=== PATIENT | male | born 1965 | race Caucasian/White ===

== ENCOUNTER 2016-11-21 07:37 | Observation (INO) | payer OTHER ==
--- NOTE | ~2016-11-21 | CR72 ---
[facility]. [facility] A Service of [facility] & [facility] RADIOLOGY TEXT RESULTS PATIENT: TRINITY LEMA LOCATION: SED : 63 UNIT #: [id number] AGE: [address]: Sharon Lawson MD SEX: M ORDER DR: [id number] [place] [id number] E MR#: [id number] Acc #: [id number] NAME: TRINITY LEMA : 1965 SEX: M STUDY DATE/TIME: 11/21/2016 8:26 UNIT: SED ROOM: STUDY DESCRIPTION: CR Chest Single View Portable Attending Physician: Sharon Lawson M.D. Ordering Physician: Physician Non-Staff Primary Care Physician: Varun Richardson M.D. MEDICAL IMAGING REPORT This report is preliminary unless electronic signature is present. EXAM Portable chest 11/21/2016 [facility] HISTORY 51-year-old male patient chest pain and pressure beginning this morning. Weakness. Dizziness. Nausea. Low heart rate. COMPARISON: Chest 03/16/2011 FINDINGS AP upright chest demonstrates normal cardiac size and configuration. Hilar structures and mediastinal contours are preserved. Lungs are mildly hyperinflated. There are no infiltrates and no effusions. IMPRESSION Generalized pulmonary hyperinflation, stable chest with no acute finding. Dictated by... Martir Seals M.D. THIS IS AN ELECTRONICALLY VERIFIED REPORT Martir Seals M.D. at 11/21/2016 11:01 AM YUNG/christine TD: 11/21/2016 10:15 JOB #: [id number] MEDICAL IMAGING REPORT Page 1 of 1
--- NOTE | ~2016-11-21 | CT71 ---
[facility] A Service of [facility] RADIOLOGY TEXT RESULTS PATIENT: TRINITY LEMA LOCATION: [facility] : 63 UNIT #: [id number] AGE: [address]: Yani Manrique MD SEX: M ORDER DR: [id number] [address] [address] [id number] E MR#: [id number] Acc #: [id number] NAME: TRINITY LEMA : 1965 SEX: M STUDY DATE/TIME: 11/21/2016 8:24 UNIT: SED ROOM: STUDY DESCRIPTION: CT Head Wo Contrast Attending Physician: Sharon Lawson M.D. Ordering Physician: Physician Non-Staff Primary Care Physician: Varun Richardson M.D. MEDICAL IMAGING REPORT This report is preliminary unless electronic signature is present. EXAM CT of the head without contrast INDICATION Dizziness. Nausea and pain starting this morning. TECHNIQUE Axial CT images were obtained from the vertex of the skull through the skull base. No intravenous contrast was administered. This CT exam was performed with one or more of the following radiation dose reduction techniques: automatic exposure control, adjustment of mA and/or kV according to patient size, and iterative reconstruction. FINDINGS No acute intracranial hemorrhage is identified. Brain parenchyma is normal in attenuation without focal areas of decreased attenuation seen. There is no midline shift or mass effect. There is mucosal thickening identified within the ethmoid and maxillary sinuses. Some additional involvement is seen within the sphenoid and frontal sinuses as well. Mastoid air cells appear clear. There are no focal soft tissue abnormalities. IMPRESSION 1. No acute intracranial process is identified. Specifically, there is no acute hemorrhage, mass lesion or acute infarct. 2. Sinus inflammatory changes as noted above. Dictated by... Thelma Quintana M.D. THIS IS AN ELECTRONICALLY VERIFIED REPORT [facility] A Service of [facility] RADIOLOGY TEXT RESULTS PATIENT: TRINITY LEMA LOCATION: [facility] 55 : 64 UNIT #: [id number] AGE: [address]: Yani Manrique MD SEX: M ORDER DR: Thelma Quintana M.D. at 11/21/2016 4:33 PM ANNIKA/jw TD: 11/21/2016 10:39 JOB #: [id number] MEDICAL IMAGING REPORT Page 1 of 1
--- NOTE | ~2016-11-21 | DS ---
Unit #: [id number] #: [id number] Patient: TRINITY LEMA [id number] [address] [place], [place] [address] [id number] I MR#: [id number] NAME: TRINITY LEMA. ROOM: [facility] Age: 51 Sex: M Admission Date: 11/21/2016 : 1965 Discharge Date: 11/22/2016 Attending Physician: Yani Manrique M.D. Primary Care Physician: Varun Richardson M.D. DISCHARGE SUMMARY ADMISSION DIAGNOSES 1. Near syncope. 2. Pressure/atypical chest pain. 3. Sinusitis. DISCHARGE DIAGNOSES 1. Near syncope, resolved. 2. Atypical chest pain, AMI ruled out with negative troponins and cardiac enzymes. 3. Sinusitis. 4. Tobacco use. CONSULTANTS Dr. Antonette Kelly - Neurology. DIAGNOSTIC STUDIES IMAGIN. CTA of the neck - negative examination per voice clip. 2. MRA of the neck and head with and without contrast. Impression - no hemodynamically significant stenosis in bilateral internal carotid artery bulbs per NASCET criteria. There is a segment of decreased caliber of the left vertebral artery noted from its origin until it enters into the transverse foramen on the left lower C-spine. This narrowing could be related to dissection; however, a well-defined intimal flap is not seen on the current study. Clinical correlation and depending on the need, CTA of the neck can be considered for further characterization. No obvious irregularity is seen along the vessel wall. 3. MRI of the brain without contrast. Impression - no acute intracranial findings. Patchy mucosal thickening in the paranasal sinuses. 4. CT of the head without contrast. Impression - no acute intracranial process identified. Specifically, no acute hemorrhage, mass, lesion or acute infarct. Sinus inflammatory changes as noted above. 5. Portable chest x-ray. Impression - generalized pulmonary hyperinflation. Stable chest with no acute findings. LABORATORY: WBC 11.9, hemoglobin 16.5, hematocrit 48.7, platelets 183,000. Sodium 137, potassium 4.0, chloride 107, CO2 25, glucose 87, BUN 14, creatinine 0.9, calcium 8.8. Total cholesterol 176, triglycerides 101, LDL cholesterol 120, HDL 36. Troponin 1, less than 0.03, less than 0.05, less than 0.05. Percent MB 1.4, CK total 100. TSH 1.38. Unit #: [id number] #: [id number] Patient: TRINITY LEMA Urinalysis negative. CONDITION Stable. DISPOSITION Home. DISCHARGE MEDICATIONS 1. Norvasc 10 mg p.o. daily. 2. Zithromax 500 mg by mouth daily for seven days. DISCHARGE INSTRUCTIONS The patient is to call and schedule a followup appointment with [facility], Dr. Manrique, in three to five days as he does not have a primary care physician at this time. He is to call [phone] to confirm this appointment which has been scheduled for 11/25/16 at 1:[address] Manrique. HOSPITAL COURSE The patient is a 51-year-old male who presented to [facility] emergency department on the date of admission with complaints of chest pressure, dizziness and nausea. He has a history of hypertension. He has not had medical care for the past three to four years. 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 He described a near syncopal episode which was also associated with numbness in the right leg. Chest pressure resolved and, although he experienced some nausea, he had no vomiting. The patient's EKG showed normal sinus rhythm with ventricular rate of [address] of the head and other diagnostic imaging of the brain and neck showed no acute changes. There was consideration of possible left vertebral artery dissection based on the MRA of the neck report. CTA of the neck was considered for further characterization and was performed this morning. Per voice click results, that was a normal examination. The patient has been completely asymptomatic and has had no further complaints since admission. Dr. Manrique has discussed this patient's case in detail with Dr. Kelly of neurology. At this time, no further neurologic or cardiac workup is planned. The patient was noted to have a low body weight of 17.5 which is 73% of his ideal body weight. He was evaluated by the progressive care unit registered nurse who recommended a healthy heart diet and Ensure shake daily to promote gradual weight gain. I have discussed this patient's care including the CTA of the neck results with Dr. Manrique directly and he has given me a telephone order to discharge the patient this afternoon with followup as dictated above. Dictated by... Silvia Dunlap A.P.R.N. for Wil Cr/rian Unit #: [id number] #: [id number] Patient: TRINITY LEMA Chaitanya TD: 11/23/2016 12:47 JOB #: [id number] DISCHARGE SUMMARY Page 1 of 1 X Silvia Dunlap APRN X DISCHARGE SUMMARY
--- NOTE | ~2016-11-21 | A ---
[facility] Nutrition Therapy DATE: 11/22/16 Patient: TRINITY LEMA Physician: DINA Address: [address] [place] [address] RD Room/Bed: [address] [place] [address], Zip: [place] [address] Admit Date: 11/21/16 Date of : 63 Height: 5 10 Weight: 117 53.4 NUTRITIONAL ASSESSMENT: REASON: LOW BMI PT IS 51 Y.O. MALE ADMITTED FOR CHEST PAIN PMH: HTN, KIDNEY STONES Anthropometrics: 5'10", WT: 122# (PER PT) (55 KG), BMI: 17.5, 73%IBW Labs: WNL Meds: NACL, PROTONIX I/O & Bowel function: 1510/300 Skin Integrity: NO KNOWN SKIN ISSUES Estimated Nutrition Needs: N/A Assessment: CHART REVIEWED AND EVENTS NOTED. PT SEEN FOR LOW BMI. PT REPORTS USUAL GOOD PO INTAKE AND APPETITE, NO C/O N/V/D. PT DENIES ANY CHEWING OR SWALLOWING DIFFICULTIES. PT REPORTS HE HAS ALWAYS BEEN SMALL-NOTES ~120-125# UBW. THIS RD ENCOURAGED ADEQUATE KCAL AND PROTEIN INTAKE, PT AGREED TO ENSURE SHAKE DAILY W/LUNCH. RD ALSO PROVIDED WRITTEN AND VERBAL DIET EDUCATION. PT VERBALIZED UNDERSTANDING OF THE TOPIC. PT REPORTED NO DIET QUESTIONS AT THIS TIME. RD TO FOLLOW. Dx: UNDERWEIGHT R/T GENETICS AEB LOW BMI OF 17.5, 73%IBW. -ALTERED NUTRIENT UTILIZATION R/T PMH AEB NEED FOR THERAPEUTIC DIET ORDER. Intervention: 1. HH DIET 2. ENSURE SHAKE DAILY 3. HH DIET EDUCATION Monitoring, Evaluation and Goals: 1. PO INTAKE; CONSUME ~80-100% NEEDS W/NO C/O N/V/D 2. WEIGHTS; PROMOTE GRADUAL WEIGHT GAIN 3. MNT; UNDERSTANDING OF DIET MONITOR: -PO INTAKE/APPETITE -WEIGHTS -EDUCATION NEEDS -SUPPLEMENT INTAKE [facility] Nutrition Therapy DATE: 11/22/16 Patient: TRINITY LEMA Physician: DINA Address: [address] [place] [address] RD Room/Bed: [address] [place] [address], Zip: [place] [address] Admit Date: 11/21/16 Date of : [birth year] Height: 5 10 Weight: 117 53.4 Recommendations: 1. PLEASE ORDER VANILLA ENSURE SHAKE DAILY W/LUNCH MEAL 2. CONSULT RD IF FURTHER DIET EDUCATION NEEDED/REQUESTED RD WILL F/U PER PROTOCOL PT IS MILDLY COMPROMISED Respectfully, YAYA REAVES MS, RD, LD Food and Nutritional Services [facility] cc: client file
--- NOTE | ~2016-11-21 | MR133 ---
[facility] A Service of [facility] & [facility] RADIOLOGY TEXT RESULTS PATIENT: TRINITY LEMA LOCATION: [facility] 552- : 63 UNIT #: [id number] AGE: [address]: Yani Manrique MD SEX: M ORDER DR: [id number] [facility] [address] [place], [place] [address] [id number] I MR#: [id number] Acc #: [id number] NAME: TRINITY LEMA. : 1965 SEX: M STUDY DATE/TIME: 11/21/2016 21:57 UNIT: [facility] ROOM: [facility] STUDY DESCRIPTION: MR MRA Neck WWo Contrast Attending Physician: Yani Manrique M.D. Ordering Physician: Yani Manrique M.D. Primary Care Physician: Varun Richardson M.D. MRI CENTER REPORT This report is preliminary unless electronic signature is present. REVISED REPORT See addendum EXAM MR angiogram of the neck with and without contrast dated 11/21/2016. COMPARISON STUDIES MRA head and MRI brain dated 11/21/2016. HISTORY Patient had nausea on 11/21/2016 and felt like passing out. Chest pain. FINDINGS Source and 3D reconstruction MIP images of the neck arteries were obtained with and without contrast. GFR measured greater than 60. 11 mL of MultiHance was administered intravenously. 3-vessel arch is seen. Visualized bilateral common, internal, and external carotid arteries demonstrate expected course, caliber and flow. Vertebral arteries do not demonstrate any significant abnormality either. The left vertebral artery demonstrates likely decreased caliber in the proximal segment before it enters the transverse foramen on the left. It, however, has relatively normal caliber right after that. No aneurysm of AVM. IMPRESSION 1. No hemodynamically significant stenosis in bilateral internal carotid artery bulbs per NASCET criteria. 2. There is a segment of decreased caliber of the left vertebral artery noted from its origin till it enters into the transverse foramen on the left lower C-spine. This narrowing could be related to dissection, however, a well defined intimal flap is not seen on the current study. Clinical correlation and depending on the need, CTA of the neck can be considered for further characterization. No obvious irregularity is seen along the vessel wall. [facility] A Service of [facility] & [facility] RADIOLOGY TEXT RESULTS PATIENT: TRINITY LEMA LOCATION: [place] [address] : [birth year] UNIT #: [id number] AGE: [address]: Yani Manrique MD SEX: M ORDER DR: 3. Attempts are made to contact Dr. Manrique or the doctor who is covering for the patient at this time, at 10:30 a.m. on 11/22/2016. A preliminary read was given by Dr. Seven Sales at 2320 hours on 11/21/2016. STAT * RESULT Dictated by... Lazara Senior M.D. THIS IS AN ELECTRONICALLY VERIFIED REPORT Lazara Senior M.D. at 11/23/2016 8:44 AM CPR/tmw TD: 11/22/2016 10:49 JOB #: [id number] ADDENDUM Findings were discussed with Dr. Manrique within the next 2 hours. Dictated by... Lazara Senior M.D. THIS IS AN ELECTRONICALLY VERIFIED REPORT Lazara Senior M.D. at 11/25/2016 4:56 PM CPR/jt TD: 11/22/2016 22:33 JOB #: [id number] CC: Tayla/adonay Please Delete MRI CENTER REPORT Page 1 of 1 COPY
--- NOTE | ~2016-11-21 | HP ---
Unit #: [id number] #: [id number] Patient: TRNIITY LEMA [id number] [address] [place], [place] [address] [id number] I MR#: [id number] NAME: TRINITY LEMA ROOM: [facility] Age: 51 Sex: M Admission Date: 11/21/2016 : 1965 Attending Physician: Yani Manrique M.D. Primary Care Physician: Varun Richardson M.D. HISTORY AND PHYSICAL CHIEF COMPLAINT 1. Chest pressure. 2. Dizziness and nausea. 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 He had a near syncopal episode and he also experienced some numbness of his right leg. Chest pressure did not last very long, had some nausea with it but no vomiting. The patient has not had any symptoms like this in the past. The only checks he has usually is a prostate exam which he gets every year. REVIEW OF SYSTEMS Denies any fever or rash. Denies any history of head trauma. Denies any history of black out episodes in the past. Denies any melena, hematochezia, hematemesis. Denies any cough or cough associated with breathlessness. A complete 10-point review of systems is done and pertinent positives noted above. PAST MEDICAL HISTORY Significant for: 1. Hypertension for which he is on no medications at this time. 2. Also kidney stones. PAST SURGICAL HISTORY Tonsillectomy. HOME MEDICATIONS Norvasc. ALLERGIES 1. Penicillin. 2. Codeine. SOCIAL HISTORY Smokes about a pack of cigarettes per day. Denies any alcohol use or illicit drug use. 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 FAMILY HISTORY Significant for diabetes mellitus and hypertension in both mother and father. His mother had a myocardial infarction in her 40s. Unit #: [id number] #: [id number] Patient: TRINITY LEMA PHYSICAL EXAMINATION VITAL SIGNS: Blood pressure 146/86, respiratory rate 16, pulse 94, temperature 97.9. GENERAL: He was comfortable, not in distress. EYES: Pupils equal and react to light and accommodation. Pupils are 4 mm, bilaterally symmetrical. NECK: Supple without thyromegaly, no elevated JVD. EARS, NOSE, THROAT: Pharynx not erythematous. LUNGS: Mostly clear. ABDOMEN: Full, moves with respirations, soft. No palpable organomegaly. Positive for normal bowel sounds. RECTAL: Deferred. NEUROLOGIC: Alert and oriented x3. Moves all extremities spontaneously. Cranial nerves II-XII are grossly intact. SKIN: Warm and dry with no rashes. LYMPH: No enlarged peripheral lymphadenopathy that I could appreciate. DIAGNOSTIC STUDIES LABORATORY: Glucose 88, BUN 22, creatinine 0.9, sodium 140, potassium 3.7, chloride 107, bicarbonate 27. CBC with WBC 11.9, hemoglobin 16.5, hematocrit 45.8, platelet count 183, neutrophil count of 61.0. Urinalysis was essentially negative. IMAGING: Chest x-ray showed generalized pulmonary hyperinflation which is stable with no acute findings. CT head showed no acute intracranial process. No acute hemorrhage or mass lesion or acute infarct. Sinus inflammatory changes were noted. CARDIOVASCULAR: EKG shows normal sinus rhythm with ventricular rate of 86 beats per minute. ASSESSMENT AND PLAN 1. Near syncope. The etiology of this is questionable at this time. The patient has not had any repeat of these symptoms. He had a CT scan of his brain which was negative. I will get an MRI of his brain and MRA of his head and neck. Will also get a lipid profile and TSH in the morning. 2. Chest pressure/atypical chest pain. Will put him on telemetry and get 3 sets of cardiac enzymes. Again, re-stratify him. The patient is not diabetic but does have a family history with mom who has had a myocardial infarction in her 40s. Considering his risk factors at this time would consider cardiac stress test should his cardiac markers become elevated. 3. Sinusitis. There was some evidence of sinusitis of the ethmoid and maxillary sinuses. Patient would benefit from antibiotic. Will put him on amoxicillin 500 mg p.o. t.i.d. for the next 10 days for his maxillary sinusitis. 4. GI prophylaxis. Put patient on Protonix 40 mg p.o. daily. 5. DVT prophylaxis. Put patient on Lovenox 40 mg subcu daily. GOALS OF CARE He is a FULL CODE. Unit #: [id number] #: [id number] Patient: TOREYTRINITY Chaitanya Dictated by Wil Cr/courtney TD: 11/21/2016 18:55 JOB #: [id number] HISTORY AND PHYSICAL Page 1 of 1 X Yani Manrique MD HISTORY AND PHYSICAL
--- NOTE | ~2016-11-21 | MR122 ---
[facility] A Service of [facility] & [facility] RADIOLOGY TEXT RESULTS PATIENT: TRINITY LEMA LOCATION: [facility] 552- : [birth year] UNIT #: [id number] AGE: [address]: Yani Manrique MD SEX: M ORDER DR: [id number] [facility] [address] [place], [place] [address] [id number] I MR#: [id number] Acc #: [id number] NAME: TRINITY LEMA. : 1965 SEX: M STUDY DATE/TIME: 11/21/2016 21:57 UNIT: [facility] ROOM: [facility] STUDY DESCRIPTION: MR MRA Head Wo Contrast Attending Physician: Yani Manrique M.D. Ordering Physician: Yani Manrique M.D. Primary Care Physician: Varun Richardson M.D. MRI CENTER REPORT This report is preliminary unless electronic signature is present. EXAM MR angiogram of the head without contrast dated 11/21/2016. COMPARISON MRI brain without contrast dated 11/21/2016, MRA neck with and without contrast dated 11/21/2016. HISTORY Nausea began on 11/21/2016 and patient felt like passing out. FINDINGS Source and 3-D reconstruction MIP images of the council of [place] was obtained without contrast. Subtle linear hypointense thin linear time of flight signal is noted within the supraclinoid bilateral ICA which is probably artifactual rather than intimal flaps as it is seen on both sides. It is seen in the supraclinoid left ICA in series 3, image 117. Bilateral anterior cerebral arteries, and middle cerebral arteries are within normal limits. 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 No associated aneurysmal dilatation is seen. Posterior circulation demonstrates normal-appearing basilar artery, bilateral posterior cerebral arteries. The vertebral arteries decrease in caliber as they extend towards the basilar artery. IMPRESSION 1. Subtle linear hypointense thin linear time of flight signal is noted within the supraclinoid bilateral ICA which is probably artifactual rather than intimal flaps as it is seen on both sides. 2. No obvious aneurysm or AVM is seen. 3. There is decrease in caliber of bilateral vertebral arteries as they extend towards the vertebrobasilar junction. It is probably a congenital appearance but stenosis is next in the differential STS. [facility] A Service of [facility] & [facility] RADIOLOGY TEXT RESULTS PATIENT: TRINITY LEMA LOCATION: [place] [address] : [birth year] UNIT #: [id number] AGE: [address]: Yani Manrique MD SEX: M ORDER DR: consideration. No distal flow compromise in the basilar artery is seen. Dictated by... Lazara Senior M.D. THIS IS AN ELECTRONICALLY VERIFIED REPORT Lazara Senior M.D. at 11/23/2016 9:26 AM CPR/tmw TD: 11/22/2016 12:29 JOB #: [id number] MRI CENTER REPORT Page 1 of 1 COPY
--- NOTE | ~2016-11-21 | CT23 ---
[facility] A Service of [facility] RADIOLOGY TEXT RESULTS PATIENT: TRINITY LEMA LOCATION: [facility] 55- : 63 UNIT #: [id number] AGE: [address]: Yani Manrique MD SEX: M ORDER DR: [id number] [place] [id number] [facility] [address] [place], [place] [address] [id number] I MR#: [id number] Acc #: [id number] NAME: TRINITY LEMA : 1965 SEX: M STUDY DATE/TIME: 11/22/2016 13:02 UNIT: [facility] ROOM: [facility] STUDY DESCRIPTION: CT Angio Neck Attending Physician: Yani Manrique M.D. Ordering Physician: Silvia Dunlap A.P.R.N. Primary Care Physician: Varun Richardson M.D. MEDICAL IMAGING REPORT This report is preliminary unless electronic signature is present EXAM CT angiogram of the neck with contrast HISTORY Dizziness for the past 3-4 days with an abnormal appearance to the proximal left vertebral artery on MRA. TECHNIQUE Axial images were obtained from the aortic arch to the skull base with contrast. 100 mL of Isovue was used. CT angiography was performed with thick sliding MIPs and curved planar reformats. This CT exam was performed with one or more of the following radiation dose reduction techniques: automatic control, adjustment of mA and/or kV according to patient size, and iterative reconstruction. FINDINGS Extravascular structures are unremarkable. The CT angiographic images are normal. In particular, the left vertebral artery is normal in appearance. There is no evidence of vertebral dissection on either side. There is no evidence of stenosis. The basilar artery is widely patent. In the carotid circulation no plaque is seen at the bifurcations. IMPRESSION Normal examination. STAT * RESULT Dictated by... [facility] A Service [facility] RADIOLOGY TEXT RESULTS PATIENT: TRINITY LEMA LOCATION: [place] [address] : 63 UNIT #: [id number] AGE: [address]: Yani Manrique MD SEX: M ORDER DR: Calvin Morrison M.D. THIS IS AN ELECTRONICALLY VERIFIED REPORT Calvin Morrison M.D. at 11/22/2016 6:47 PM RLF/darius TD: 11/22/2016 14:46 JOB #: [id number] MEDICAL IMAGING REPORT Page 1 of 1 COPY
--- NOTE | ~2016-11-21 | EKG ---
PATIENT: TRINITY LEMA UNIT #: [id number] Ventricular Rate: 86 BPM Atrial Rate: 86 BPM P-R Interval: 130 ms QRS Duration: 76 ms Q-T Interval: 368 ms QTC Calculation(Bezet): 440 ms P [place]: 68 degrees Calculated R [place]: 85 degrees Calculated T [place]: 71 degrees Diagnosis Line: Normal sinus rhythm Diagnosis Line: Normal ECG Diagnosis Line: No previous ECGs available Diagnosis Line: Confirmed by ROSITA SHANNON MD ([id number]) on 11/30/2016 Diagnosis Line: 7:57:14 PM INTERPRETING MD: MIRTHA NIEVES
--- NOTE | ~2016-11-21 | MR18 ---
[facility] A Service of [facility] RADIOLOGY TEXT RESULTS PATIENT: TRINITY LEMA LOCATION: [facility] : 63 UNIT #: [id number] AGE: [address]: Yani Manrique MD SEX: M ORDER DR: [id number] [facility] [address] [place], [place] [address] [id number] MR#: [id number] Acc #: [id number] NAME: TRINITY LEMA. : 1965 SEX: M STUDY DATE/TIME: 11/21/2016 21:57 UNIT: [facility] ROOM: [facility] STUDY DESCRIPTION: MR Brain Wo Contrast Attending Physician: Yani Manrique M.D. Ordering Physician: Yani Manrique M.D. Primary Care Physician: Varun Richardson M.D. MRI CENTER REPORT This report is preliminary unless electronic signature is present. EXAM MRI brain without contrast INDICATIONS Syncope today. PROCEDURE Multiplanar, multisequence MR imaging of the brain without administration of contrast COMPARISON Head CT from 11/21/2016 FINDINGS Diffusion weighted imaging shows no evidence for acute or early subacute infarct. There is no acute hemorrhage, abnormal mass effect, extraaxial collection or hydrocephalus. There are a few tiny foci of T2 hyperintensity in the white matter. Flow voids major create intracranial vessels are intact. There is some patchy mucosal thickening ethmoid air cells and right maxillary sinus. IMPRESSION 1. No acute intracranial findings. 2. Patchy mucosal thickening in the paranasal sinuses Dictated by... Poncho Sales M.D. THIS IS AN ELECTRONICALLY VERIFIED REPORT Poncho Sales M.D. at 11/22/2016 10:15 PM EED/carlos [facility] A Service [facility] RADIOLOGY TEXT RESULTS PATIENT: TRINITY LEMA LOCATION: [facility] : 63 UNIT #: [id number] AGE: [address]: Yani Manrique MD SEX: M ORDER DR: TD: 11/22/2016 02:31 JOB #: [id number] MRI CENTER REPORT Page 1 of 1 COPY
[~2016-11-21 07:37] MED LIST: CIPRO PO; DICLOFENAC PO; FLOMAX0.4 M1 PO; LOMOTIL TABLET1 TAB PO; NAPROSYN500 MG PO; NORVASC PO; PAXIL PO; PERCOCET5/325 PO; PHENERGAN25 MG PO; VICODIN 5/1 TAB 5/50 PO
[2016-11-21 08:03] LABS: BASOPHIL# 0.1 X10e3 (0-0.3); BASOPHIL% 0.8 % (0-2.5); DIFF IND NO; EOSINOPHIL# 0.3 X10e3 (0-0.7); EOSINOPHIL% 2.3 % (0.0-7.0); HEMATOCRIT 48.7 % (38.0-50.0); HEMOGLOBIN 16.5 gm/dL (13.0-16.0); LYMPHOCYTE# 3.5 X10e3 (1.0-3.5); LYMPHOCYTE% 29.6 % (17.0-45.0); MEAN CELL VOLUME 91.4 FL (83-96); MEAN CORPUSCULAR HGB CONC 33.9 g/dL (30-36); MEAN PLATELET VOLUME 8.4 FL (6.5-11.5); MONOCYTE# 0.7 X10e3 (0-1.0); MONOCYTE% 6.3 % (3.0-12.0); NEUTROPHIL# 7.3 X10e3 (1.5-7.1); PLATELET COUNT 183 X10e3 (140-420); RED BLOOD COUNT 5.34 X10e (3.90-5.60); RED CELL DISTRIBUTION WIDTH 13.9 % (11.0-15.5); WHITE BLOOD COUNT 11.9 X10e3 (4.0-10.5)
[2016-11-21 08:09] LABS: POC - CKMB <1.0 ng/mL (0.0-7.9); POC - MYOGLOBIN 56.2 ng/mL (0.0-169.0); POC - TROPONIN <0.05 ng/mL (<=0.05)
[2016-11-21 08:21] LABS: ALBUMIN SERUM 4.3 g/dL (3.5-5.0); BILIRUBIN, DIRECT 0.1 mg/dL (0.0-0.2); BILIRUBIN,INDIRECT 0.5 mg/dL (0.0-0.9); BILIRUBIN,TOTAL 0.6 mg/dL (0.2-2.0); BUN/CREATININE RATIO 24.44; CALCIUM SERUM 9.4 mg/dL (8.4-10.2); CREATININE SERUM 0.9 mg/dL (0.6-1.4); GLOM FILT RATE Estimated 97.9 mL/min (>60); POTASSIUM 3.7 mmol/L (3.5-5.1); PROTEIN TOTAL SERUM 6.9 g/dL (6.0-8.3)
[2016-11-21 09:41] LABS: POC - CKMB <1.0 ng/mL (0.0-7.9); POC - MYOGLOBIN 45.5 ng/mL (0.0-169.0)
[2016-11-21 09:42] LABS: POC - TROPONIN <0.05 ng/mL (<=0.05)
[2016-11-21 10:23] LABS: URINE SOURCE CLEAN CATCH
[2016-11-21 10:26] LABS: URINE APPEARANCE CLEAR; URINE BILIRUBIN NEG (NEG); URINE BLOOD NEG (NEG); URINE COLOR YELLOW; URINE GLUCOSE NEG (NORM); URINE KETONE NEG (NEG); URINE LEUKOCYTE ESTERASE NEG (NEG); URINE NITRATE NEG (NEG); URINE PH 6.5 (5-8); URINE UROBILINOGEN 0.2 MG/DL (NORM)
[2016-11-21 10:29] LABS: MICRO INDICATED? NO; URINE PROTEIN NEG (NEG)
[2016-11-21 20:02] LABS: %MB 1.4 % (0.0-4.0); MB 1.4 ng/ml
[2016-11-22 07:08] LABS: BUN/CREATININE RATIO 15.55; CALCIUM SERUM 8.8 mg/dL (8.4-10.2); CREATININE SERUM 0.9 mg/dL (0.6-1.4); GLOM FILT RATE Estimated 97.9 mL/min (>60)
[2016-11-22] MEDS ORDERED: ZITHROMAX500 MG PO (15:58)
== END 2016-11-22 16:43 | disposition home or self-care (01) | DRG 312 ==
LOC: SED 07:37 → C5B 17:20
PROVIDERS: Emergency Medicine; Family Medicine
DX: R55 Syncope and collapse (principal); R07.89 Other chest pain; F17.210 Nicotine dependence, cigarettes, uncomplicated; J32.0 Chronic maxillary sinusitis; J32.2 Chronic ethmoidal sinusitis; I10 Essential (primary) hypertension; Z23 Encounter for immunization; Z88.0 Allergy status to penicillin; Z88.5 Allergy status to narcotic agent; R90.89 Other abnormal findings on diagnostic imaging of central nervous system; Z82.49 Family history of ischemic heart disease and other diseases of the circulatory system; Z83.3 Family history of diabetes mellitus
CPT/HCPCS: 36415; 70450; 70498; 70544; 70549; 70551; 71010; 80048; 80061; 80076; 81003; 82550; 82553; 82947; 83874; 84443; 84484; 85025; 90732; 93005; 96361; 96372; 96374; 96375; 96376; 99285; A9577; C9113; G0009; G0378; J1650; J2405; Q9967

== ENCOUNTER → 2017-01-05 | Outpatient (CLI) | payer OTHER ==
[~2017-01-05] MED LIST changes: +ZITHROMAX500 MG PO
--- NOTE | ~2017-01-05 | ST ---
Unit #: [id number] #: [id number] Patient: TRINITY LEMA [id number] [facility]. [address] [address] [id number] O MR#: [id number] NAME: TRINITY LEMA. : 1965 SEX: M STUDY DATE/TIME: 01/07/2017 UNIT: [facility] ROOM: STUDY DESCRIPTION: Attending Physician: Yani Manrique M.D. Referring Physician: Yani Manrique M.D. Primary Care Physician: Varun Richardson M.D. CARDIOLOGY REPORT EXAM Stress test FINDINGS Baseline EKG, normal sinus rhythm, normal EKG. Resting heart rate 91 per minute, blood pressure 117/75. This 51-year-old patient was assessed on a Harry protocol for 9 minutes and 41 seconds, achieving a heart rate of 146 per minute, peak blood pressure was 148/100, maximum workload obtained was 10.1 METs, Exercise was terminated because of fatigue and no ischemic changes noted. No arrhythmias noted. Blood pressure response was normal. IMPRESSION 1. Negative exercise stress test for ischemia. 2. No arrhythmias noted. 3. Normal blood pressure response to exercise. Dictated by... Wil Allen/cristiano TD: 01/08/2017 07:36 JOB #: [id number] CARDIOLOGY REPORT Page 1 of 1 X Long Ambriz MD CARDIOLOGY REPORT
== END | disposition home or self-care (01) ==
LOC: CEKG 07:15
DX: R07.9 Chest pain, unspecified (principal); R00.2 Palpitations
CPT/HCPCS: 93017